=== PATIENT | female | born 1975 | race African-American/Black ===

== ENCOUNTER 2022-12-02 17:15 | Emergency (ER) | payer OTHER ==
[2022-12-02] MEDS ORDERED: Fluorescein Opthalmic Strip ONE (17:24)
[2022-12-02] MEDS ORDERED: Tetracaine 0.5% PF 4 ML BOT ONE (17:24)
[2022-12-02] MEDS ORDERED: Boostrix 0.5 ML (Tdap) VIAL (>/=7 yrs of age) ONE (17:38)
== END 2022-12-02 17:55 | disposition home or self-care (01) ==
LOC: MADERS 17:15
DX: S05.02XA Injury of conjunctiva and corneal abrasion without foreign body, left eye, initial encounter (principal); H10.9 Unspecified conjunctivitis; X58.XXXA Exposure to other specified factors, initial encounter; Y93.E9 Activity, other interior property and clothing maintenance; Z23 Encounter for immunization
CPT/HCPCS: 90471; 90715

== ENCOUNTER 2023-05-06 11:57 | Emergency (ER) | payer BC, SELFPAY ==
[~2023-05-06 11:57] MED LIST: Iopamidol 370 76% 100 ML VIAL ONE
[2023-05-06 12:44] LABS: INR-International Normal Ratio 1.1
[2023-05-06 12:49] LABS: ALT (SGPT) 10 U/L (8-55); AST (SGOT) 22 U/L (5-34); Alkaline Phosphatase 64 U/L (40-110); Anion Gap 14 mmol/L (10-20); BHCG - Serum Negative (NEGATIVE); BUN (Urea Nitrogen) 5 mg/dL (7.0-18.7); Bilirubin, Total 1.3 mg/dL (0.2-1.2); Calc. Creatinine Clearance 0 mL/min (70-130); Calcium 9.3 mg/dL (7.8-10.44); Carbon Dioxide 20 mmol/L (22-29); Chloride 108 mmol/L (98-107); Estimated GFR 108; Globulin 3.6 g/dL (2.4-3.5); Glucose 91 mg/dL (70-105); Potassium 3.9 mmol/L (3.5-5.1); Pregs Control Background? CLEAR/WHITE (CLR/WHITE); Pregs Control Bar Appear? YES (CONTROL BAR); Protein, Total 7.6 g/dL (6.0-8.3); Sodium 138 mmol/L (136-145)
[2023-05-06 12:52] LABS: Hematocrit 22.2 % (36.0-47.0); Hemoglobin 6.1 g/dL (12.0-16.0); Mean Corpuscular HGB CONC 27.7 g/dL (32.0-36.0); Mean Corpuscular Hemoglobin 15.5 pg (27.0-31.0); Mean Corpuscular Volume 55.9 fl (78.0-98.0); Mean Platelet Volume 5.3 fL (7.4-10.4); Platelet Count 434 10x3/uL (130-400); RBC Distribution Width 15.7 % (11.5-14.5); Red Blood Cell (RBC) Count 3.98 mill/uL (4.20-5.40); White Blood Cell (WBC) Count 4.6 10x3/uL (4.8-10.8)
[2023-05-06 13:09] LABS: MDiff Complete? YES; Manual Diff?? YES
[2023-05-06 13:10] LABS: Monocytes 10 % (0-10); Neutrophil 79 % (42-75)
[2023-05-06 13:11] LABS: Band 1 % (5-11); Lymphocytes 10 % (21-51)
[2023-05-06 13:12] LABS: Anisocytosis SLIGHT = 6-15 cells (100X) (0-5/hpf)
[2023-05-06 13:13] LABS: Platelet Adequacy Comment Appears Adequate
[2023-05-06 13:15] LABS: Microcytosis MODERATE=15-30 cells (100X) (0-5/hpf)
[2023-05-06 13:37] LABS: SARS-CoV-2 NAA Rapid Test Not Detected (NotDetected)
[2023-05-06 16:07] LABS: Hemoglobin 7.4 g/dL (12.0-16.0)
[2023-05-06 16:08] LABS: Hematocrit 25.4 % (36.0-47.0)
[2023-05-06 17:04] LABS: Iron 17 ug/dL (50-170); Iron Binding Capacity, Total 451 mcg/dL (265-497)
== END 2023-05-06 17:14 | disposition home or self-care (01) ==
LOC: MADERS 11:57
DX: D50.0 Iron deficiency anemia secondary to blood loss (chronic) (principal); K80.20 Calculus of gallbladder without cholecystitis without obstruction; N83.8 Other noninflammatory disorders of ovary, fallopian tube and broad ligament; D25.9 Leiomyoma of uterus, unspecified; J11.1 Influenza due to unidentified influenza virus with other respiratory manifestations; I10 Essential (primary) hypertension; Z79.899 Other long term (current) drug therapy
CPT/HCPCS: 36430; 74177; 80053; 82728; 83540; 83550; 84443; 84703; 85025; 85610; 86850; 86900; 86901; P9016; Q9967

== ENCOUNTER 2023-05-12 09:35 | Outpatient (CLI) | payer OTHER ==
[2023-05-12 10:15] LABS: Hematocrit 27.7 % (36.0-47.0); Hemoglobin 7.8 g/dL (12.0-16.0); Mean Corpuscular HGB CONC 28.3 g/dL (32.0-36.0); Mean Corpuscular Volume 60.1 fl (78.0-98.0); Mean Platelet Volume 5.1 fL (7.4-10.4); Platelet Count 241 10x3/uL (130-400); RBC Distribution Width 24.8 % (11.5-14.5); White Blood Cell (WBC) Count 2.3 10x3/uL (4.8-10.8)
[2023-05-12 10:16] LABS: Anisocytosis MODERATE=16-30 cells (100X) (0-5/hpf); Eosinophils 3 % (0-10); Lymphocytes 49 % (21-51); MDiff Complete? YES; Manual Diff?? YES; Microcytosis SLIGHT = 6-15 cells (100X) (0-5/hpf); Monocytes 6 % (0-10); Myelocyte 1 % (0-0); Neutrophil 30 % (42-75); Poikilocytosis MODERATE=16-30 cells (100X) (0-5/hpf); Polychromasia SLIGHT = 2-3 cells (100X) (0-2/hpf); Reactive Lymphocytes 11 % (0-10); Target Cells SLIGHT = 2-5 cells (100X) (0-1/hpf)
[2023-05-12 10:18] LABS: Hypochromia MODERATE=16-30 cells (100X) (0-5/hpf); Platelet Adequacy Comment Appears Adequate
== END 2023-05-12 09:36 | disposition home or self-care (01) ==
LOC: MADLAB 09:35
PROVIDERS: ATTEND Pathology Anatomic Pathology & Clinical Pathology
DX: Z00.00 Encounter for general adult medical examination without abnormal findings (principal)
CPT/HCPCS: 36415; 85025

== ENCOUNTER 2023-12-11 22:58 | Emergency (ER) | payer BC, OTHER ==
[2023-12-11] MEDS ORDERED: Dicyclomine 20 MG/2 ML VIAL ONE (23:21)
[2023-12-11] MEDS ORDERED: Ketorolac Tromethamine 60 MG/2 ML VIAL ONE (23:22)
[2023-12-11] MEDS ORDERED: HYDROcodone/Acetaminophen 10/325 mg Tablet ONE (23:22)
== END 2023-12-12 | disposition home or self-care (01) ==
LOC: MADERS 22:58
DX: R10.2 Pelvic and perineal pain (principal); I10 Essential (primary) hypertension
CPT/HCPCS: 96372; 99283; J1885